=== PATIENT | male | born 1970 | race Caucasian/White ===

== ENCOUNTER → 2017-06-22 17:27 | Outpatient (CLI) | payer OTHER, SELFPAY ==
[2017-06-22 20:56] LABS: Amphetamine Urine VISTA NEGATIVE (<1000 ng/mL); Barbiturate Urine VISTA NEGATIVE (< 200 ng/mL); Benzodiazepine Urine VISTA NEGATIVE (< 200 ng/mL); Cocaine Urine VISTA NEGATIVE (< 300 ng/mL); Ecstacy Urine VISTA NEGATIVE (< 500 ng/mL); Methadone Urine VISTA NEGATIVE (< 300 ng/mL); PCP Urine VISTA NEGATIVE (< 25 ng/mL); THC Urine VISTA NEGATIVE (< 50 ng/mL); Vista UDS pH Range 6
== END ==
PROVIDERS: Visit Provider Anesthesiology
DX: F11.20 Opioid dependence, uncomplicated (principal)
CPT/HCPCS: 80307

== ENCOUNTER 2017-08-03 12:21 | Day surgery (SDC) | payer OTHER, SELFPAY ==
[2017-08-03 12:40] VITALS: BP 156/88; PULSE 88; TEMP 36.6; O2SAT 92; BMI 58.4
--- NOTE | 2017-08-03 14:15 | RAD_ITS ---
CLINICAL HISTORY: Male, 46 years old. Lower back pain PROCEDURE: Facet Caudal block FLUOROSCOPY TIME (if supplied): (0:34) minutes. 2 Images. RADIATION DOSAGE (If Supplied By Facility): CTDIvol = ( ) mGy, DLP = ( ) mGycm TECHNIQUE: RADIATION DOSAGE (If Supplied By Facility): CTDIvol = ( ) mGy, DLP = ( ) mGycm TECHNIQUE: 4 needles are seen projecting at L2-3, L3-4, L4-5, L5-S1 tip is in the facet joint. RAD/Lumbar Spine 2 or 3 Views IMPRESSION: Successful lumbar facet joint injection under fluoroscopic guidance. Electronically Signed: Elayne Mayberry MD at 9:59 EDT Tel , Service support ,
[2017-08-03] MEDS: Triamcinolone Acetonide 40 MG/ML Vial (14:23)
[2017-08-03] MEDS: Bupivacaine 0.25% 30 ML Vial (14:23)
--- NOTE | 2017-08-03 14:33 | DCINST_ITS ---
- Discharge Diagnoses Current Active Problems: Lower back pain and lumbar facets spondylosis Lumbar facets arthritis and hypertrophy Morbid obesity You will use the following diet at home:: No restrictions Your food should be the consistency of: Regular Discharge Activity: Return to Normal Activity May shower in (days): 1 May resume sexual activity in: No Restrictions Weight Bearing Status: Weight bearing as tolerated Call your doctor if your incision/area has: Continuous Slow Oozing, Increased Pain/ Swelling, Increased Redness, Foul Smelling Discharge, Swelling at the incision site Call your doctor if you observe: Fever of 101 or Higher, Coldness, Increased Pain, Numbness or Tingling, Inability to have a bowel movement, Calf discomfort , Uncontrolled pain Suture Line Care: Avoid Pulling/Pushing, Avoid Pinching/Bending Cleanse incision/area with: Soap & Water Allergies/Adverse Reactions: Allergies No Known Allergies Allergy (Verified 07/31/17 13:25) Medications to take at Discharge Gabapentin [Neurontin] 300 mg PO TID 10/28/16 Ropinirole HCl [Requip] 1 mg PO QHS 10/28/16 Oxycodone HCl/Acetaminophen [Percocet 7.5-325 mg Tablet] 1 tab PO BID 07/31/17 Primary Care Physician: Care Physician,No Primary [Primary Care Provider] - Please Follow Up With: Norm Wong MD
[2017-08-03 14:37] VITALS: BP 127/85; BP 156/88; PULSE 79; RESP 16; TEMP 36.3; O2SAT 100
--- NOTE | 2017-08-03 14:39 | OP.PCM_ITS ---
Problem List (1) Spondylosis of lumbar region without myelopathy or radiculopathy Status: Acute (2) Spondylosis of lumbar region without myelopathy or radiculopathy Status: Acute (3) Low back pain Status: Acute (4) Low back pain Status: Acute (5) Acute exacerbation of chronic low back pain Status: Acute (6) Acute exacerbation of chronic low back pain Status: Acute Report of Operation Date of Procedure: 08/03/17 Pre-Operative Diagnosis: Lumbar facet spondylosis Post-Operative Diagnosis: Lumbar facet spondylosis and lower back pain with lumbar facet arthropathy warts at L3-4 L4-5 5 S1 Surgery/Procedure Performed:: Right side lumbar facet median nerve branch injection supplying the level at L3-4 L4-5 5 S1 on the right side under fluoroscopy guidance Description of Surgical Findings:: Under sterile conditions. Patient placed in the prone position, pressure points were padded, patient was ready from the nursing and the anesthesia team. After identification of the side and the target area for the block under guided fluoroscopy, the entry site was marked with marking pen. I used Betadine for sterilization of the skin, sterile draping were applied. Using 25-gauge needle to infiltrate the skin with local anesthesia using preservative-free lidocaine 1 % injected 2.5 mL at each site of entry. Using oblique fluoroscopy, accessed the right medial nerve branch supplying the [right] lumbar facets L3-4, L4-5, L5-S1 using 22-gauge spinal needle due to patient size. After confirmation of appropriate needle placement to the targeted area with AP and lateral fluoroscopy, injected 2.5 mL mixture of preservative-free Marcaine 0.5% and Kenalog [20] mg at each site. Continue on the lateral fluoroscopy was the x-ray machine could not able to elicit lateral picture however I reconfirmed and lateral oblique as well as AP which showed good contact with the bone as well as confirmed was clinical feeling [place] was removed, pressure dressing were applied. Patient tolerated the procedure well and was taken to the recovery. Type of Anesthesia:: Local MAC, MAC Special Medications: Lidocaine 0.5% preservative-free. Marcaine 0.5% preservative-free. Kenalog 80 mg preservative-free Estimated Blood Loss (mL): None - Complications None
[2017-08-03 14:42] VITALS: BP 137/85; BP 156/88; PULSE 71; RESP 16; O2SAT 98
[2017-08-03 14:47] VITALS: BP 156/88; BP 157/97; PULSE 72; RESP 16; O2SAT 99
[2017-08-03 14:52] VITALS: BP 139/86; BP 156/88; PULSE 75; RESP 16; TEMP 36.3; O2SAT 99
[2017-08-03 14:58] VITALS: BP 156/88
== END 2017-08-03 15:00 | disposition home or self-care (01) ==
LOC: SDC 12:23 → AC 12:23
PROVIDERS: Visit Provider Anesthesiology
PROC: 3E0T3BZ Introduction of Anesthetic Agent into Peripheral Nerves and Plexi, Percutaneous Approach (ICD-10-PCS; CPT 64493; principal; 2017-08-03 13:40)
DX: M47.816 Spondylosis without myelopathy or radiculopathy, lumbar region (principal); M54.5 Low back pain; G89.4 Chronic pain syndrome; M50.323 Other cervical disc degeneration at C6-C7 level; M17.0 Bilateral primary osteoarthritis of knee; M13.852 Other specified arthritis, left hip; G25.81 Restless legs syndrome; G62.9 Polyneuropathy, unspecified; E66.01 Morbid (severe) obesity due to excess calories; Z68.43 Body mass index [BMI] 50.0-59.9, adult; F17.200 Nicotine dependence, unspecified, uncomplicated; Z79.891 Long term (current) use of opiate analgesic; Z79.899 Other long term (current) drug therapy; Z98.84 Bariatric surgery status; Z86.19 Personal history of other infectious and parasitic diseases; Z86.2 Personal history of diseases of the blood and blood-forming organs and certain disorders involving the immune mechanism
CPT/HCPCS: 64493; 64494; 64495; 64483; 72100; J7120

== ENCOUNTER 2017-10-19 12:31 | Day surgery (SDC) | payer OTHER, SELFPAY ==
[2017-10-19 12:52] VITALS: BP 169/85; PULSE 93; RESP 16; TEMP 37.1; O2SAT 92; BMI 61.5
--- NOTE | 2017-10-19 13:29 | RAD_ITS ---
STUDY: X-RAY - LUMBAR SPINE REASON FOR EXAM: Male, 46 years old. Facet block L2-S1 RADIATION DOSAGE (If Supplied By Facility): CTDIvol = ( ) mGy, DLP = ( ) mGycm FLUOROSCOPY TIME (if supplied): (0:22) minutes/seconds TECHNIQUE: Intraoperative fluoroscopy. For intraoperative views. COMPARISON: None FINDINGS: Normal lumbar lordosis. There is no substantial scoliosis. There is a normal alignment of the vertebrae. Normal vertebral bodies and endplates. Normal disc space heights. The soft tissue structures are unremarkable. RAD/Lumbar Spine 2 or 3 Views IMPRESSION: Normal x-ray examination of the lumbar spine. Electronically Signed: Elayne Mayberry MD at 15:20 EDT Tel , Service support ,
[2017-10-19] MEDS: Bupivacaine 0.25% 30 ML Vial (13:56)
[2017-10-19] MEDS: Triamcinolone Acetonide 40 MG/ML Vial (13:56)
[2017-10-19 14:15] VITALS: BP 132/85; BP 169/85; PULSE 81; RESP 16; TEMP 36.4; O2SAT 95
[2017-10-19 14:20] VITALS: BP 149/87; BP 169/85; PULSE 78; RESP 16; O2SAT 97
[2017-10-19 14:25] VITALS: BP 139/83; BP 169/85; PULSE 78; RESP 16; O2SAT 98
--- NOTE | 2017-10-19 14:26 | PCM.DC ---
- Discharge Diagnoses Current Active Problems: Lower back pain and lumbar spondylosis You will use the following diet at home:: No restrictions Your food should be the consistency of: Regular Discharge Activity: Return to Normal Activity May resume sexual activity in: No Restrictions Weight Bearing Status: Weight bearing as tolerated Call your doctor if your incision/area has: Sudden Increased Bleeding, Increased Pain/ Swelling, Swelling at the incision site Call your doctor if you observe: Fever of 101 or Higher, Numbness or Tingling, Uncontrolled pain Suture Line Care: Avoid Pulling/Pushing, Avoid Pinching/Bending Instructions: What Is Osteoarthritis? Allergies/Adverse Reactions: Allergies No Known Allergies Allergy (Verified 07/31/17 13:25) Medications to take at Discharge Gabapentin [Neurontin] 300 mg PO TID 10/28/16 Ropinirole HCl [Requip] 1 mg PO QHS 10/28/16 Oxycodone HCl/Acetaminophen [Percocet 7.5-325 mg Tablet] 1 tab PO BID 07/31/17 Primary Care Physician: Care Physician,No Primary [Primary Care Provider] - Please Follow Up With: Norm Wong MD
--- NOTE | 2017-10-19 14:27 | PCM.OPRPT ---
Problem List (1) Spondylosis of lumbar region without myelopathy or radiculopathy Status: Acute (2) Spondylosis of lumbar region without myelopathy or radiculopathy Status: Acute (3) Low back pain Status: Acute (4) Low back pain Status: Acute (5) Acute exacerbation of chronic low back pain Status: Acute (6) Acute exacerbation of chronic low back pain Status: Acute Report of Operation Date of Procedure: 10/19/17 Surgery/Procedure Performed:: Left sIde lumbar facets blocks at L3-4, L4-5, L5-S1 under fluoroscopy guidance Description of Surgical Findings:: Under sterile conditions. Patient placed in the prone position, pressure points were padded, patient was ready from the nursing and the anesthesia team. After identification of the side and the target area for the block under guided fluoroscopy, the entry site was marked with marking pen. I used Betadine for sterilization of the skin, sterile draping were applied. Using 25-gauge needle to infiltrate the skin with local anesthesia using preservative-free lidocaine 0.5% injected 2.5 mL at each site of entry. Using oblique fluoroscopy, accessed the right medial nerve branch supplying the left lumbar facets L3-4, L4-5, L5-S1 using 22-gauge spinal needle. After confirmation of appropriate needle placement to the targeted area with AP and lateral fluoroscopy, injected 2.5 mL mixture of preservative-free Marcaine 0.5% and Kenalog [20] mg at each site. [employer] was removed, pressure dressing were applied. Patient tolerated the procedure well and was taken to the recovery. Type of Anesthesia:: Local MAC Estimated Blood Loss (mL): None Description of Procedure: As above
[2017-10-19 14:30] VITALS: BP 157/86; BP 169/85; PULSE 78; RESP 16; TEMP 36.3; O2SAT 100
[2017-10-19 15:01] VITALS: BP 169/85
== END 2017-10-19 15:02 | disposition home or self-care (01) ==
LOC: SDC 12:32 → AC 12:33
PROVIDERS: Visit Provider Anesthesiology
PROC: 3E0T3BZ Introduction of Anesthetic Agent into Peripheral Nerves and Plexi, Percutaneous Approach (ICD-10-PCS; CPT 64493; principal; 2017-10-19 13:25)
DX: M47.816 Spondylosis without myelopathy or radiculopathy, lumbar region (principal); M51.36 Other intervertebral disc degeneration, lumbar region; M54.5 Low back pain; G89.4 Chronic pain syndrome; M51.34 Other intervertebral disc degeneration, thoracic region; M17.0 Bilateral primary osteoarthritis of knee; M13.852 Other specified arthritis, left hip; M50.323 Other cervical disc degeneration at C6-C7 level; I89.0 Lymphedema, not elsewhere classified; G25.81 Restless legs syndrome; K21.9 Gastro-esophageal reflux disease without esophagitis; E66.01 Morbid (severe) obesity due to excess calories; Z68.44 Body mass index [BMI] 60.0-69.9, adult; F17.200 Nicotine dependence, unspecified, uncomplicated; Z79.891 Long term (current) use of opiate analgesic; Z79.899 Other long term (current) drug therapy; Z86.2 Personal history of diseases of the blood and blood-forming organs and certain disorders involving the immune mechanism; Z86.19 Personal history of other infectious and parasitic diseases; Z98.84 Bariatric surgery status
CPT/HCPCS: 01992; 64493; 64494; 64495; 64483; 72100; J7120

== ENCOUNTER → 2017-12-28 17:04 | Outpatient (CLI) | payer OTHER, SELFPAY ==
[2017-12-28 17:47] LABS: Amphetamine Urine VISTA NEGATIVE (<1000 ng/mL); Barbiturate Urine VISTA NEGATIVE (< 200 ng/mL); Benzodiazepine Urine VISTA NEGATIVE (< 200 ng/mL); Cocaine Urine VISTA NEGATIVE (< 300 ng/mL); Ecstacy Urine VISTA NEGATIVE (< 500 ng/mL); Methadone Urine VISTA NEGATIVE (< 300 ng/mL); PCP Urine VISTA NEGATIVE (< 25 ng/mL); THC Urine VISTA NEGATIVE (< 50 ng/mL); Vista UDS pH Range 5
== END ==
PROVIDERS: Visit Provider Anesthesiology
DX: F11.20 Opioid dependence, uncomplicated (principal)
CPT/HCPCS: 80307

== ENCOUNTER → 2018-05-03 15:42 | Outpatient (CLI) | payer MEDICARE, SELFPAY ==
[2018-05-03 16:31] LABS: Amphetamine Urine VISTA NEGATIVE (<1000 ng/mL); Barbiturate Urine VISTA NEGATIVE (< 200 ng/mL); Benzodiazepine Urine VISTA NEGATIVE (< 200 ng/mL); Cocaine Urine VISTA NEGATIVE (< 300 ng/mL); Ecstacy Urine VISTA NEGATIVE (< 500 ng/mL); Methadone Urine VISTA NEGATIVE (< 300 ng/mL); PCP Urine VISTA NEGATIVE (< 25 ng/mL); THC Urine VISTA NEGATIVE (< 50 ng/mL); Vista UDS pH Range 6
== END ==
PROVIDERS: Referring Provider Anesthesiology; Visit Provider Anesthesiology
DX: F11.20 Opioid dependence, uncomplicated (principal)
CPT/HCPCS: 80307

== ENCOUNTER 2018-07-05 11:43 | Day surgery (SDC) | payer MEDICARE, SELFPAY ==
[2018-07-05 12:09] VITALS: BP 152/93; PULSE 88; RESP 18; TEMP 37.1; O2SAT 97; BMI 59.9
--- NOTE | 2018-07-05 13:45 | RAD_ITS ---
HISTORY: PAIN, SI JOINT AND PIRIFORMIS INJECTION EXAM/TECHNIQUE: XR Spine Single View Specify Level: COMPARISON: None. FINDINGS: # of images incl. paperwork: 4 2 fluoroscopic images with evidence of injection in the region of the piriformis and SI joint. The side is not labeled. Fluoroscopy time 31.7 seconds. RAD/Fluoro Guided Needle Placement IMPRESSION: Status post SI joint and piriformis injection. at 1926 Reported and signed by: Manuelito Reynolds MD Electronically Signed: Manuelito Reynolds, at 19:25 EST Tel , Service support ,
[2018-07-05] MEDS: Bupivacaine 0.25% 30 ML Vial (14:20)
[2018-07-05] MEDS: Triamcinolone Acetonide 40 MG/ML Vial (14:20)
--- NOTE | 2018-07-05 14:24 | DCINST_ITS ---
- Discharge Diagnoses Current Active Problems: Left-sided sacroiliac joint pain and left pyriformis muscle syndrome Reason(s) for Visit for Discharge Instructions: Left sacroiliac joint injection and left pyriformis muscle injection You will use the following diet at home:: No restrictions Your food should be the consistency of: Regular Discharge Activity: Return to Normal Activity Return to work on:: 07/08/18September shower in (days): 1 September resume sexual activity in: No Restrictions Weight Bearing Status: Weight bearing as tolerated Call your doctor if your incision/area has: Continuous Slow Oozing, Sudden Increased Bleeding, Increased Pain/ Swelling, Foul Smelling Discharge, Swelling at the incision site Call your doctor if you observe: Fever of 101 or Higher, Coldness, Increased Pain, Calf discomfort, Uncontrolled pain Suture Line Care: Avoid Pulling/Pushing, Avoid Pinching/Bending Remove Dressing in (days):: 1 Cleanse incision/area with: Soap & Water Allergies/Adverse Reactions: Allergies No Known Allergies Allergy (Verified 07/05/18 12:07) Medications to take at Discharge Gabapentin [Neurontin] 300 mg PO TID 10/28/16 Ropinirole HCl [Requip] 1 mg PO QHS 10/28/16 Oxycodone HCl/Acetaminophen [Percocet 7.5-325 mg Tablet] 1 tab PO BID 07/31/17 Primary Care Physician: Care Physician,No Primary [Primary Care Provider] - Test Results: Test results from this visit will be discussed in further detail at your follow- up appointment, if applicable. Please Follow Up With: Norm Wong MD
--- NOTE | 2018-07-05 14:29 | OP.PCM_ITS ---
Problem List (1) Sacroiliitis, not elsewhere classified Status: Acute (2) Myalgia, unspecified site Status: Acute (3) Radiculopathy of lumbosacral region Status: Acute Report of Operation Date of Procedure: 07/05/18 Pre-Operative Diagnosis: Sacroiliitis and piriformis muscle syndrome Post-Operative Diagnosis: Same Surgery/Procedure Performed:: Left-sided sacroiliac joint injection and left pyriformis muscle injection under fluoroscopy guidance Description of Surgical Findings:: Under sterile conditions. Patient placed in the prone position, pressure points were padded, patient was ready from the nursing and the anesthesia team. After identification of the side and the target area for the block under guided fluoroscopy, the entry site was marked with marking pen. I used Betadine for sterilization of the skin, sterile draping were applied. Identified the left sacroiliac joint at the lower third of the sacroiliac joint using oblique fluoroscopy and marker point. Using 25-gauge needle to infiltrate the skin with local anesthesia using preservative-free lidocaine 0.5% injected 5 mL at each site of entry. Using oblique fluoroscopy, accessed the left sacroiliac joint also [place] the left pyriformis muscle using using 22-gauge spinal needle. After confirmation of appropriate needle placement to the targeted area with AP and lateral fluoroscopy, injected 10 mL mixture of preservative-free Marcaine 0.5% and Kenalog [40] mg at each site. Total injected 80 mg Kenalog to both sides of the left sacral area joint and left pyriformis muscle which showed good distribution along with origin to the insertion of the pyriformis muscle and spread across AP dimension of this sacroiliac joint . [place] was removed, pressure dressing were applied. Patient tolerated the procedure well and was taken to the recovery. Type of Anesthesia:: Local MAC
[2018-07-05 14:32] VITALS: BP 125/88; BP 152/93; PULSE 76; RESP 16; TEMP 36.3; O2SAT 97
[2018-07-05 14:35] VITALS: BP 141/90; BP 152/93; PULSE 74; RESP 16; O2SAT 97
[2018-07-05 14:40] VITALS: BP 147/95; BP 152/93; PULSE 75; RESP 16; O2SAT 97
[2018-07-05 14:45] VITALS: BP 139/87; BP 152/93; PULSE 77; RESP 16; TEMP 36.2; O2SAT 99
[2018-07-05 15:12] VITALS: BP 152/93
== END 2018-07-05 15:13 | disposition home or self-care (01) ==
LOC: SDC 11:45 → AC 11:46
PROVIDERS: Referring Provider Anesthesiology; Visit Provider Anesthesiology
PROC: 3E0U3GC Introduction of Other Therapeutic Substance into Joints, Percutaneous Approach (ICD-10-PCS; CPT 27096; principal; 2018-07-05 13:40)
DX: M46.1 Sacroiliitis, not elsewhere classified (principal); M54.17 Radiculopathy, lumbosacral region; G89.4 Chronic pain syndrome; M51.36 Other intervertebral disc degeneration, lumbar region; M51.34 Other intervertebral disc degeneration, thoracic region; M50.323 Other cervical disc degeneration at C6-C7 level; M17.0 Bilateral primary osteoarthritis of knee; M13.852 Other specified arthritis, left hip; G62.9 Polyneuropathy, unspecified; G25.81 Restless legs syndrome; D64.9 Anemia, unspecified; M79.10 Myalgia, unspecified site; I89.0 Lymphedema, not elsewhere classified; F17.200 Nicotine dependence, unspecified, uncomplicated; E66.01 Morbid (severe) obesity due to excess calories; Z68.43 Body mass index [BMI] 50.0-59.9, adult; Z79.899 Other long term (current) drug therapy; Z98.84 Bariatric surgery status
CPT/HCPCS: 01992; 20552; G0259; 76000; 77002; J7120

== ENCOUNTER → 2018-08-09 20:21 | Outpatient (CLI) | payer MEDICARE, SELFPAY ==
[2018-08-09 20:56] LABS: Amphetamine Urine VISTA NEGATIVE (<1000 ng/mL); Barbiturate Urine VISTA NEGATIVE (< 200 ng/mL); Benzodiazepine Urine VISTA NEGATIVE (< 200 ng/mL); Cocaine Urine VISTA NEGATIVE (< 300 ng/mL); Ecstacy Urine VISTA NEGATIVE (< 500 ng/mL); Methadone Urine VISTA NEGATIVE (< 300 ng/mL); PCP Urine VISTA NEGATIVE (< 25 ng/mL); THC Urine VISTA NEGATIVE (< 50 ng/mL); Vista UDS pH Range 6
== END ==
PROVIDERS: Referring Provider Anesthesiology; Visit Provider Anesthesiology
DX: F11.20 Opioid dependence, uncomplicated (principal)
CPT/HCPCS: 80307

== ENCOUNTER → 2018-11-06 16:30 | Outpatient (CLI) | payer MEDICARE, SELFPAY ==
--- NOTE | 2018-11-06 16:49 | MRI_ITS ---
STUDY: MRI LUMBAR SPINE WITHOUT CONTRAST REASON FOR EXAM: Male, 47 years old. Low back and left leg pain TECHNIQUE: Standardized fat and water weighted pulse sequences were obtained in the sagittal and axial planes. COMPARISON: Lumbar spine x-rays on July 05, 2018 FINDINGS: T12-L1: Normal endplates. Normal disc height, hydration and morphology. Normal bilateral facet joints. Normal central canal and bilateral lateral recesses. Normal bilateral intervertebral neural foramina. Normal lumbar lordosis. There is no substantial scoliosis. Normal conus medullaris that terminates at T12-L1 L1-2: Normal endplates. Normal disc height, desiccation and minor annular bulge with small lobulated right paracentral/left paracentral disc protrusion. Normal bilateral facet joints. Mild narrowing of central canal and right lateral recess stenosis with moderate narrowing on the left. Moderate bilateral neural foraminal encroachment.. L2-3: Normal endplates. Normal disc height, desiccation and mild annular bulge.. Normal bilateral facet joints. Normal central canal and bilateral lateral recesses. Mild bilateral neural foraminal encroachment. L3-4: Normal endplates. Normal disc height, desiccation and minor annular bulge with small bilateral foraminal disc protrusions... Normal bilateral facet joints. Normal central canal and bilateral lateral recesses. Mild bilateral neural foraminal encroachment. L4-5: Normal endplates. Normal disc height, desiccation and mild annular bulge.. Bilateral facet arthropathy. Normal central canal and bilateral lateral recesses. Moderate bilateral neuroforaminal stenosis. L5-S1: Normal endplates. Normal disc height, hydration and tiny central disc protrusion.. Bilateral facet arthropathy.. Normal central canal and bilateral lateral recesses. Normal bilateral intervertebral neural foramina. Normal visualized sacral ala. Normal visualized paraspinous soft tissue structures. MRI/Spine Lumbar (Routine) IMPRESSION: No evidence for acute fracture or other significant bony pathology.. Multilevel disc degeneration and spinal stenosis secondary to disc disease and facet arthropathy most severe at L4-5 Findings as above Electronically Signed: Jef Marsh MD at 19:30 EDT , Service support ,
== END ==
PROVIDERS: Referring Provider Anesthesiology; Visit Provider Anesthesiology
DX: M54.16 Radiculopathy, lumbar region (principal)
CPT/HCPCS: 72148

== ENCOUNTER 2018-12-13 14:27 | Day surgery (SDC) | payer MEDICARE, SELFPAY ==
[2018-12-13 15:00] VITALS: BP 161/101; PULSE 89; RESP 18; TEMP 37.6; O2SAT 99; BMI 62.9
--- NOTE | 2018-12-13 16:00 | RAD_ITS ---
STUDY: X-RAY - LUMBAR SPINE REASON FOR EXAM: Male, 47 years old. Epidural block. TECHNIQUE: 3 cone down intraoperative view(s) of the lumbar spine were obtained. COMPARISON: None FINDINGS: A spinal needle is seen at the L4-L5 level for epidural block. RAD/Spine 1 View Any Level IMPRESSION: Intraoperative imaging provided for L4-L5 epidural block. Electronically Signed: Edmundo Cuenca, at 9:29 EDT , Service support ,
[2018-12-13] MEDS: Triamcinolone Acetonide 40 MG/ML Vial (16:20)
[2018-12-13 16:31] VITALS: BP 159/92; BP 161/101; PULSE 81; RESP 16; TEMP 36.4; O2SAT 95
--- NOTE | 2018-12-13 16:31 | DCINST_ITS ---
- Discharge Diagnoses Current Active Problems: Lumbar degenerative disease, lumbar disc herniation, lumbar spinal stenosis and lumbar radiculopathy Reason(s) for Visit for Discharge Instructions: Lumbar epidural steroid injection at the level of the L4-5 under fluoroscopy guidance You will use the following diet at home:: No restrictions Your food should be the consistency of: Regular Discharge Activity: Return to Normal Activity May shower in (days): 1 Weight Bearing Status: Weight bearing as tolerated Call your doctor if your incision/area has: Continuous Slow Oozing, Sudden Increased Bleeding, Increased Pain/ Swelling, Increased Redness, Foul Smelling Discharge, Swelling at the incision site Call your doctor if you observe: Fever of 101 or Higher, Numbness or Tingling Suture Line Care: Avoid Pulling/Pushing, Avoid Pinching/Bending Remove Dressing in (days):: 1 Cleanse incision/area with: Soap & Water Allergies/Adverse Reactions: Allergies No Known Allergies Allergy (Verified 12/11/18 10:18) Medications to take at Discharge Gabapentin [Neurontin] 600 mg PO TID 10/28/16 Ropinirole HCl [Requip] 0.5 mg PO BID 10/28/16 Oxycodone HCl/Acetaminophen [Percocet 7.5-325 mg Tablet] 1 tab PO TID 07/31/17 Acetaminophen [Acetaminophen Extra Strength] 500 - 1,000 mg PO Q8H PRN PRN 12/13/18 Primary Care Physician: Care Physician,No Primary [Primary Care Provider] - Test Results: Test results from this visit will be discussed in further detail at your follow- up appointment, if applicable. Please Follow Up With: Norm Wong MD
--- NOTE | 2018-12-13 16:33 | PCM.OP.PRO ---
Problem List (1) Neurogenic claudication due to lumbar spinal stenosis Status: Acute (2) Neurogenic claudication due to lumbar spinal stenosis Status: Acute (3) Other intervertebral disc displacement, lumbar region Status: Acute (4) Other intervertebral disc displacement, lumbar region Status: Acute (5) Other intervertebral disc degeneration, lumbar region Status: Acute (6) Low back pain Status: Acute (7) Acute exacerbation of chronic low back pain Status: Acute (8) Radiculopathy of lumbosacral region Status: Acute Procedure Report Date of Procedure: 12/13/18 Under sterile conditions. Patient placed in the prone position, pressure points were padded, patient was ready from the nursing and the anesthesia team. After identification of the side and the target area for the block under guided fluoroscopy, the entry site was marked with marking pen. I used Betadine for sterilization of the skin, sterile draping were applied. Using 25-gauge needle to infiltrate the skin with local anesthesia using preservative-free lidocaine 0.5% injected 2.5 mL at site of entry. Using guided fluoroscopy, accessed the the posterior epidural space using 18-gauge Touhy needles under midline approach, accessed the site was assisted with lateral fluoroscopy, followed by using [id number] technique using preservative-free normal saline, negative aspiration of CSF and blood. Injected contrast solution [2.5] mL under live fluoroscopy which showed good spread of the contrast to the posterior epidural space and to the targeted area of the injection at[ L4-5]. Injected [5] mL of mixture of preservative-free lidocaine and Kenalog [80] mg for the procedure which showed appropriate spread in the epidural space. [place] was removed, pressure dressing were applied. Patient tolerated the procedure well and was taken to the recovery.
[2018-12-13 16:35] VITALS: BP 153/89; BP 161/101; PULSE 80; RESP 16; O2SAT 94
[2018-12-13 16:40] VITALS: BP 147/96; BP 161/101; PULSE 80; RESP 16; O2SAT 94
[2018-12-13 16:45] VITALS: BP 156/91; BP 161/101; PULSE 79; RESP 16; TEMP 36.3; O2SAT 94
[2018-12-13 17:01] VITALS: BP 161/101
== END 2018-12-13 17:12 | disposition home or self-care (01) ==
LOC: SDC 14:29 → AC 14:32
PROVIDERS: Referring Provider Anesthesiology; Visit Provider Anesthesiology
PROC: 3E0S3BZ Introduction of Anesthetic Agent into Epidural Space, Percutaneous Approach (ICD-10-PCS; CPT 62322; principal; 2018-12-13 15:55)
DX: M51.36 Other intervertebral disc degeneration, lumbar region (principal); M48.062 Spinal stenosis, lumbar region with neurogenic claudication; M51.26 Other intervertebral disc displacement, lumbar region; M47.817 Spondylosis without myelopathy or radiculopathy, lumbosacral region; M47.816 Spondylosis without myelopathy or radiculopathy, lumbar region; M51.34 Other intervertebral disc degeneration, thoracic region; M50.323 Other cervical disc degeneration at C6-C7 level; M17.0 Bilateral primary osteoarthritis of knee; G89.4 Chronic pain syndrome; G25.81 Restless legs syndrome; I89.0 Lymphedema, not elsewhere classified; E66.01 Morbid (severe) obesity due to excess calories; Z68.44 Body mass index [BMI] 60.0-69.9, adult; F17.200 Nicotine dependence, unspecified, uncomplicated; Z86.19 Personal history of other infectious and parasitic diseases; Z86.2 Personal history of diseases of the blood and blood-forming organs and certain disorders involving the immune mechanism
CPT/HCPCS: 01992; 62323; 64483; 72020; J7120

== ENCOUNTER 2019-01-31 09:40 | Day surgery (SDC) | payer MEDICARE, SELFPAY ==
[2019-01-31 10:09] VITALS: BP 145/84; PULSE 93; RESP 18; TEMP 36.4; O2SAT 95; BMI 61.9
[2019-01-31] MEDS: Lactated Ringers 1,000 ML 100 ML IV (10:25)
--- NOTE | 2019-01-31 12:11 | RAD_ITS ---
STUDY: X-RAY - LUMBAR SPINE REASON FOR EXAM: Male, 48 years old. Nerve block TECHNIQUE: 3 view(s) of the lumbar spine were obtained. COMPARISON: None FINDINGS: 20 seconds of fluoroscopy of the lumbar spine was utilized and operating room and 3 images suspended for interpretation. RAD/Spine 1 View Any Level IMPRESSION: Fluoroscopy during nerve block clear Electronically Signed: Doyle Isaac MD at 14:07 EDT Tel , Service support ,
[2019-01-31] MEDS: Triamcinolone Acetonide 40 MG/ML Vial (12:19)
--- NOTE | 2019-01-31 12:26 | DCINST_ITS ---
- Discharge Diagnoses Current Active Problems: Lumbar degenerative disc disease lumbar spinal stenosis Reason(s) for Visit for Discharge Instructions: Receiving lumbar epidural steroid injection at L4-5 for his lower back pain and leg pain to facilitate walking and ambulation and improved patient function You will use the following diet at home:: No restrictions Your food should be the consistency of: Regular Discharge Activity: Return to Normal Activity, No Restrictions May shower in (days): 1 May resume sexual activity in: No Restrictions Weight Bearing Status: Weight bearing as tolerated Call your doctor if your incision/area has: Continuous Slow Oozing, Sudden Increased Bleeding, Increased Pain/ Swelling, Foul Smelling Discharge, Swelling at the incision site Call your doctor if you observe: Fever of 101 or Higher, Coldness, Increased Pain, Numbness or Tingling, Increased palpitations (irregular heartbeat), Calf discomfort, Uncontrolled pain Suture Line Care: Avoid Pulling/Pushing, Avoid Pinching/Bending Remove Dressing in (days):: 1 Cleanse incision/area with: Soap & Water Allergies/Adverse Reactions: Allergies No Known Allergies Allergy (Verified 01/31/19 10:08) Medications to take at Discharge Gabapentin [Neurontin] 600 mg PO TID 10/28/16 Ropinirole HCl [Requip] 0.5 mg PO BID 10/28/16 Oxycodone HCl/Acetaminophen [Percocet 7.5-325 mg Tablet] 1 tab PO TID 07/31/17 Acetaminophen [Acetaminophen Extra Strength] 500 - 1,000 mg PO Q8H PRN PRN 12/13/18 Primary Care Physician: Care Physician,No Primary [Primary Care Provider] - Test Results: Test results from this visit will be discussed in further detail at your follow- up appointment, if applicable. Please Follow Up With: Norm Wong MD
--- NOTE | 2019-01-31 12:27 | OP.PCM_ITS ---
Problem List (1) Low back pain Status: Acute (2) Low back pain Status: Acute (3) Acute exacerbation of chronic low back pain Status: Acute (4) Acute exacerbation of chronic low back pain Status: Acute (5) Neurogenic claudication due to lumbar spinal stenosis Status: Acute (6) Neurogenic claudication due to lumbar spinal stenosis Status: Acute (7) Other intervertebral disc displacement, lumbar region Status: Acute (8) Other intervertebral disc displacement, lumbar region Status: Acute (9) Other intervertebral disc degeneration, lumbar region Status: Acute Report of Operation Date of Procedure: 01/31/19 Pre-Operative Diagnosis: Lumbar degenerative disease, lumbar radiculopathy. Lumbar spinal stenosis with neurogenic claudication Post-Operative Diagnosis: Same Surgery/Procedure Performed:: Lumbar epidural steroid injection at the level of the L4-5 under fluoroscopy Description of Surgical Findings:: Under sterile conditions. Patient placed in the prone position, pressure points were padded, patient was ready from the nursing and the anesthesia team. After identification of the side and the target area for the block under guided fluoroscopy, the entry site was marked with marking pen. I used Betadine for sterilization of the skin, sterile draping were applied. Using 25-gauge needle to infiltrate the skin with local anesthesia using preservative-free lidocaine 0.5% injected 2.5 mL at site of entry. Using guided fluoroscopy, accessed the the posterior epidural space using 18- gauge Touhy , 5 insulins due to patient size needles under midline approach, accessed the site was assisted with lateral fluoroscopy, followed by using loss -of-resistance technique using preservative-free normal saline, negative aspiration of CSF and blood. Injected contrast solution [2.5] mL under live fluoroscopy which showed good spread of the contrast to the posterior epidural space and to the targeted area of the injection at[ L4-5]. Injected [5] mL of mixture of preservative-free lidocaine and Kenalog [80] mg for the procedure which showed appropriate spread in the epidural space. [place] was removed, pressure dressing were applied. Patient tolerated the procedure well and was taken to the recovery. Type of Anesthesia:: MAC - Complications None
[2019-01-31 12:30] VITALS: BP 135/77; BP 145/84; PULSE 82; RESP 15; TEMP 36.7; O2SAT 96
[2019-01-31 12:35] VITALS: BP 124/82; BP 145/84; PULSE 79; RESP 16; O2SAT 97
[2019-01-31 12:40] VITALS: BP 127/81; BP 145/84; PULSE 79; RESP 16; O2SAT 97
[2019-01-31 12:45] VITALS: BP 133/87; BP 145/84; PULSE 81; RESP 16; TEMP 36.5; O2SAT 97
[2019-01-31 13:13] VITALS: BP 145/84
== END 2019-01-31 13:13 | disposition home or self-care (01) ==
LOC: SDC 09:40 → AC 09:41
PROVIDERS: Referring Provider Anesthesiology; Visit Provider Anesthesiology
PROC: 3E0S3BZ Introduction of Anesthetic Agent into Epidural Space, Percutaneous Approach (ICD-10-PCS; CPT 62322; principal; 2019-01-31 11:10)
DX: M51.16 Intervertebral disc disorders with radiculopathy, lumbar region (principal); G89.29 Other chronic pain; M48.062 Spinal stenosis, lumbar region with neurogenic claudication; Z86.19 Personal history of other infectious and parasitic diseases; Z98.84 Bariatric surgery status; G25.81 Restless legs syndrome; F17.200 Nicotine dependence, unspecified, uncomplicated; Z79.899 Other long term (current) drug therapy
CPT/HCPCS: 01992; 62323; 64483; 72020; J7120